=== PATIENT | female | born 1990 | race Caucasian/White ===

== ENCOUNTER 2019-09-26 11:00 | Outpatient (RCR) | payer OTHER, SELFPAY ==
--- NOTE | 2019-09-16 13:54 | OTOPEVAL ---
Occupational Therapy Evaluation and Plan of Treatment 09/16/2019 Thank you for referring Gwendolyn Escalante to [facility]. Patient will benefit from skilled OT 2x/week for 4 weeks. Please review, sign, date and return this plan of care SARA. I agree with and certify that the following plan of care is medically necessary. Referring Physician Date Attending Provider: Karen Mares, PA *OT Outpatient Evaluation Start: 09/16/19 11:54 Freq: Status: Active Protocol: Document 09/16/19 12:36 KJL (Rec: 09/16/19 13:43 KJL [id number]) Therapy Assessment Status Assessment Status Assessment Status Evaluation Outpatient Past Medical History Past Medical History No Past Medical/Surgical History Patient/Family Denies Significant Past Medical/ Surgical History Evaluation Information Problem Diagnosis L wrist pain Onset mid june 2019 Cause over use Additional Evaluation Detail pain to first dorsal compartment of L UE wrist including EPL and ABL tendons on lateral aspect of wrist that began in June of 2019 Subjective Information Pt reports pain on lateral Query Text:As Reported By Patient/ aspect of L wrist started when Family holding 3 month old daughter in june and has progressively become worse. 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
--- NOTE | 2019-09-19 15:43 | PCOTNOTE ---
Patient did not show or call to cancel OT tx today.
--- NOTE | 2019-09-23 11:26 | PCOTNOTE ---
Patient did not show or call to cancel OT treatment on this date 09/23/2019. Called and left message notifying of attendance policy.
--- NOTE | 2019-09-26 11:15 | OTOPEVAL ---
OCCUPATIONAL THERAPY DISCHARGE NOTE 09/26/2019 Gwendolyn has not returned for further treatment since her initial evaluation on 09/16/2019. She has been a no call/no show to 3 appointments, therefore will be discharged from therapy at this time. Goals were not addressed. Thank you for referring Gwendolyn Escalante to [facility]. Please review, sign, date and return this D/C note SARA. I agree with and certify that the following plan of care is medically necessary. Referring Physician Date Referring Provider: Karen Mares, MAVERICK
== END 2019-09-26 12:50 | disposition home or self-care (01) ==
LOC: ANHOT 11:00
PROVIDERS: PCP Physician Assistant; Visit Provider Physician Assistant
DX: M25.532 Pain in left wrist (principal)
CPT/HCPCS: 97165

== ENCOUNTER 2019-11-13 22:42 | Emergency (ER) | payer OTHER, SELFPAY ==
--- NOTE | ~2019-11-13 | XR_ITS ---
EXAMINATION: XR chest 2V DATE: 11/13/2019 23:03 INDICATION: Chest pain TECHNIQUE: PA and lateral views of the chest are obtained. COMPARISON: 08/08/2014 FINDINGS: The lungs are free of acute opacities. There is no pleural effusion or pneumothorax. The ca rdiomediastinal silhouette is normal. The visualized bones and soft tissues are unremarkable. IMPRESSION: 1. No acute cardiopulmonary abnormality. Reviewed, dictated and finalized at location A.
[2019-11-13 22:49] VITALS: BP 122/94; PULSE 89; RESP 18; TEMP 36.9; O2SAT 97
--- NOTE | 2019-11-13 22:50 | ECG_ITS ---
Measurements Intervals [place] Rate: 72 P: 70 UT: 145 QRS: 67 QRSD: 77 T: 60 QT: 362 QTc: 396 Interpretive Statements SINUS RHYTHM WITH SINUS ARRHYTHMIA NORMAL ECG Electronically Signed On 11-14-2019 6:58:08 CDT by Aj Kelly D.O.
--- NOTE | 2019-11-13 22:55 | ED.ARRPALP ---
HPI - Arrhythmia/Palpitations General Chief Complaint: Chest Pain Stated Complaint: Heart is acting weird Time Seen by Provider: 11/13/19 22:50 History of Present Illness HPI narrative: Pt c/o palpitations and feeling anxious x 5 days. Pt states she's been drinking alot of energy drinks lately along with being on Vyvanse. Denies cp, sob, abd pain, or n/v. MD complaint: heart racing Duration: intermittent Related Data Allergies Allergy/AdvReac Type Severity Reaction Status Date / Time No Known Allergies Allergy Unverified 11/11/18 13:03 Review of Systems Review of Systems: All systems reviewed & are unremarkable except as noted in HPI and below Constitutional: Constitutional: Denies body ache(s), Denies chills, Denies excessive sweating, Denies fatigue, Denies fever(s), Denies headache(s), Denies lethargy, Denies malaise, Denies weakness and Denies weight loss Eyes: Eyes: Denies blurry vision, Denies change in vision and Denies loss of vision ENT: Denies dizziness, Denies ear discharge, Denies headache(s), Denies lip swelling, Denies epistaxis, Denies nasal congestion, Denies neck pain, Denies throat swelling and Denies tongue swelling Cardiovascular: Cardiovascular: Denies chest pain, Denies chest pain at rest, Denies chest pain with activity, Denies diaphoresis, Denies edema, Denies irregular heart rhythm, Denies lightheadedness, Denies dyspnea and Denies dyspnea on exertion Respiratory: Respiratory: Denies chest congestion, Denies cough, Denies hemoptysis, Denies dyspnea and Denies dyspnea on exertion Gastrointestinal: Gastrointestinal: Denies abdominal pain, Denies melena, Denies hematochezia, Denies diarrhea, Denies nausea, Denies vomiting and Denies hematemesis Musculoskeletal: Musculoskeletal: Denies abnormal gait, Denies deformity, Denies joint swelling, Denies limited range of motion, Denies neck pain and Denies numbness Neurologic: Denies Abnormal speech present, Denies abnormal gait, Denies confusion, Denies dizziness, Denies headache(s), Denies focal weakness, Denies loss of vision, Denies numbness, Denies Other visual disturbances, Denies Sensory deficit (Neuro) and Denies weakness Psychiatric: Psychiatric: Denies confusion, Denies depression, Denies auditory hallucinations, Denies homicidal ideation and Denies suicidal ideation Endocrine: Endocrine: Denies cold intolerance, Denies excessive sweating, Denies fatigue, Denies heat intolerance and Denies palpitations Hematologic/Lymphatic: Hematologic/Lymphatic: Denies easy bleeding and Denies easy bruising Allergic/Immunologic: Allergic/Immunologic: Denies lip swelling, Denies throat swelling and Denies tongue swelling Exam Const: General: cooperative, healthy appearing, comfortable, no acute distress, well developed, alert and awake; No confusion Orientation/consciousness: oriented to person, oriented to place, oriented to time, patient oriented x3 and No confusion Limitations: no limitations HENMT: Head: normal to inspection, normocephalic and atraumatic Ears: hearing grossly normal bilaterally, TM normal on the right and TM normal on the left General nose exam: Normal external nose present, Normal nares present and No nasal discharge present Face and sinus: normal facial exam Mouth: Yes Normal oral and palatal mucosa present, Yes lip normal, Yes tongue normal and Yes oropharynx normal Throat: posterior oropharynx normal, tonsils normal and uvula midline Eyes: General: appearance normal, both eyes and all related structures Pupils: Equal, round and reactive pupils present EOM: EOMs intact bilaterally Neck: Neck: normal visual inspection, full ROM, no lymphadenopathy and no meningeal signs Chest: Chest palpation & inspection: normal inspection of the chest Resp: Effort & Inspection: normal respiratory effort, able to speak in complete sentences, no respiratory distress and not tachypneic Auscultation: clear to auscultation bilaterally, no crackles, no rales, no rh
[2019-11-13 23:05] LABS: Basophils Absolute Auto 0.1 K/mm3 (0.0-0.1); Basophils Percent Auto 0.8 % (0.2-1.2); Eosinophils Absolute Auto 0.5 K/mm3 (0-0.3); Eosinophils Percent Auto 6.5 % (0-4.4); Hematocrit 41.4 % (37.0-47.0); Immature Granulocyte Absolute 0.02 K/mm3 (0.00-0.031); Immature Granulocyte Percent A 0.2 % (0-0.5); Lymphocytes Absolute Auto 2.66 K/mm3 (0.9-3.2); Mean Corpuscular HGB Conc 33.8 g/dl (32-36); Mean Corpuscular Hemoglobin 32.6 pg (26-34); Mean Corpuscular Volume 96.3 fl (80-100); Mean Platelet Volume 10.2 fl (7.4-10.4); Monocytes Absolute Auto 0.6 K/mm3 (0.1-0.6); Monocytes Percent Auto 7.2 % (2.6-8.5); Neutrophils Absolute Auto 4.4 K/mm3 (1.3-6.7); Neutrophils Percent Auto 53.3 % (45.5-73.1); Platelet Count Result 295 k/mm3 (150-375); Red Cell Distribution Width 12.1 % (11.5-14.5); White Blood Count 8.3 K/mm3 (4.5-10.0)
[2019-11-13 23:14] LABS: Anion Gap 6 mmol/L (8-16); Blood Urea Nitrogen 15 mg/dL (7-17); Calcium 9.5 mg/dL (8.4-10.2); Carbon Dioxide 28 mmol/L (22-30); Chloride 103 mmol/L (98-107); Estimated CRCL calculation 82 ml/min; Estimated Glomerular Filt Rate > 60; Glucose 101 mg/dL (65-105); Sodium 137 mmol/L (137-145)
[2019-11-13 23:26] LABS: Troponin I < 0.012 ng/mL (0.000-0.034)
[2019-11-13 23:28] LABS: D Dimer 0.27 ug/mL (<0.48)
[2019-11-13 23:55] VITALS: BP 130/88; PULSE 69; RESP 18; O2SAT 99
== END 2019-11-13 23:55 | disposition home or self-care (01) ==
PROVIDERS: Emergency Provider Emergency Medicine; PCP Physician Assistant
DX: R00.2 Palpitations (principal)
CPT/HCPCS: 36415; 71046; 80048; 84484; 85025; 85380; 93005; 99284

== ENCOUNTER 2022-06-18 17:01 | Emergency (ER) | payer SELFPAY ==
[2022-06-18 17:38] VITALS: BP 93/76; PULSE 72; RESP 18; TEMP 37.1; O2SAT 100
--- NOTE | 2022-06-18 17:56 | ED.EAR ---
HPI - Ear Problem General Chief complaint: Ear Stated complaint: Ears Irritation Time Seen by Provider: 06/18/22 17:56 Source: patient, RN notes reviewed and old records reviewed Mode of arrival: ambulatory Limitations: no limitations History of Present Illness HPI Narrative: 31-year-old female presents to the [facility] with bilateral ear pain since , 2 days. Denies any fever Had try using ear drops Related Data Home Medications Medication Instructions Recorded Confirmed dextroamphetamine-amphetamine 10 06/18/22 mg tablet Allergies Allergy/AdvReac Type Severity Reaction Status Date / Time No Known Allergies Allergy Verified 06/18/22 17:37 Review of Systems Review of Systems: All systems reviewed & are unremarkable except as noted in HPI and below Constitutional: Constitutional: Reports no additional constitutional complaints Eyes: Eyes: Reports no additional eye complaints ENT: Reports as per HPI and Reports otalgia (Bilateral) Cardiovascular: Cardiovascular: Reports no additional cardiovascular complaints, Denies chest pain and Denies dyspnea Respiratory: Respiratory: Reports no additional respiratory complaints, Denies chest congestion, Denies cough and Denies dyspnea Gastrointestinal: Gastrointestinal: Reports no additional gastrointestinal complaints, Denies abdominal pain, Denies nausea and Denies vomiting Musculoskeletal: Musculoskeletal: Reports no additional musculoskeletal complaints Integumentary/Breasts: Skin/Breast: Reports system reviewed and no additional complaints, except as docu Neurologic: Reports system reviewed and no additional complaints, except as documented Psychiatric: Psychiatric: Reports no additional psychiatric complaints Allergic/Immunologic: Allergic/Immunologic: Reports no additional allergic/immunologic complaints PMFSH Comments At the time of my signature, I reviewed and agree with the nursing past medical, surgical, social, and family history. There is no relevant family history pertinent to the patient complaint. Exam Const: General: cooperative, healthy appearing, comfortable, no acute distress, well developed, alert and well nourished Nutritional Appearance: well nourished Orientation/consciousness: patient oriented x3 Limitations: no limitations HENMT: Head: normal to inspection Ears: hearing grossly normal bilaterally, external ears normal, mastoids normal and TM abnormal bulging bilateral and erythematous bilateral Face/Nose/Sinus: Normal external nose present, Normal nares present, Normal nasal mucous membranes and turbinates present and normal facial exam Face and sinus: normal facial exam Mouth: Yes Normal oral and palatal mucosa present, Yes lip normal and Yes moist mucous membranes Throat: posterior oropharynx normal, uvula midline and postnasal drainage Eyes: General: appearance normal, both eyes and all related structures Alignment and Position: alignment normal Periorbital: periorbital findings normal Conjunctivae: conjunctivae normal Pupils: Equal, round and reactive pupils present EOM: EOMs intact bilaterally Neck: Neck: normal visual inspection, full ROM, no lymphadenopathy and no meningeal signs Chest: Chest palpation & inspection: normal inspection of the chest Resp: Effort & Inspection: normal respiratory effort and able to speak in complete sentences Auscultation: clear to auscultation bilaterally, no crackles, no rales, no rhonchi and no wheezes Cardio: Rate: regular rate Rhythm: regular rhythm Back/Spine/Pelvis: Cervical Spine: cervical ROM normal Thoracic/Lumbar Spine: No thoracic spinal tenderness Skin: General skin exam: normal color and no rashes or lesions noted Lesions: no lesions Rashes: no rashes Wounds: no wounds Neuro: General: patient oriented x3, gait normal, tone normal, moves all extremities and no meningeal signs Cranial nerves: Yes Equal, round and reactive pupils present Cognition (Neuro): normal
== END 2022-06-18 18:08 | disposition home or self-care (01) ==
PROVIDERS: Emergency Provider Nurse Practitioner
DX: H66.93 Otitis media, unspecified, bilateral (principal)
CPT/HCPCS: 99213; G0463

== ENCOUNTER 2024-07-25 19:22 | Emergency (ER) | payer OTHER, SELFPAY ==
[2024-07-25] VITALS (21 sets, daily range): BP systolic 119–133; BP diastolic 69–94; PULSE 76–107; RESP 9–20; TEMP 36.8; O2SAT 89–100
--- NOTE | ~2024-07-25 | CT_ITS ---
CT abdomen pelvis w con Ordering provider: Nabor Kolb MD History: 33 years Female with . epigastric pain radiating to back . Comparison: November 27, 2015 Technique: CT abdomen and pelvis with IV and without oral contrast. Automated exposure control and it erative reconstruction technique were employed. The dose-length product was 210.06 mGy-cm. 100 mL Omn ipaque 350 was given IV. Findings: VISUALIZED LOWER CHEST: Normal. UPPER ABDOMINAL ORGANS: Liver: Normal. Gallbladder: Normal. Spleen: Normal. Stomach/duodenum: Normal. Pancreas: Normal. Adrenals: Normal. Kidneys: Fullness of the right ureter with no definite stones or hydronephrotic changes.. PELVIC ORGANS: The bladder is normal. BOWEL AND MESENTERY: Colon: No evidence of diverticulitis. No evidence of appendicitis. Small Bowel: Normal. No obstruction. Peritoneum/mesentery: No free air or free fluid. No mesenteric lymphadenopathy. RETROPERITONEUM: Normal aorta. No retroperitoneal lymphadenopathy. MUSCULOSKELETAL: Superficial soft tissues: The superficial soft tissues are normal. Bones: Normal spine. IMPRESSION: 1. No evidence of appendicitis, diverticulitis or intestinal obstruction. Reviewed, dictated and finalized at location A.
--- NOTE | ~2024-07-25 | XR_ITS ---
XR chest 2V Ordering provider: Nabor Kolb MD History: 33 years Female with . dizziness . Comparison: November 13, 2019 FINDINGS: MEDIASTINUM: The cardiac silhouette is not enlarged. LUNGS: No infiltrates, effusions or pneumothorax. OTHER: No free air under the diaphragm. IMPRESSION: No acute cardiopulmonary pathology. Reviewed, dictated and finalized at location A.
--- NOTE | 2024-07-25 19:25 | ECG_ITS ---
Test Date: 2024-07-25 19:27:46 Measurements Intervals [place] Rate: 103 P: 74 NM: 145 QRS: 63 QRSD: 69 T: 47 QT: 355 QTc: 467 Interpretive Statements SINUS TACHYCARDIA BASELINE ARTIFACT- II, III, AVL, AVF, V4-V6 BORDERLINE ECG No previous ECG available for comparison Electronically Signed On 07-26-2024 06:11:58 CDT by Aj Kelly D.O.
[2024-07-25 19:39] LABS: Basophils Percent Auto 0.5 % (0.2-1.2); Eosinophils Absolute Auto 0.1 K/mm3 (0-0.3); Eosinophils Percent Auto 1.2 % (0-4.4); Hematocrit 38.4 % (37.0-47.0); Hemoglobin 12.7 g/dL (12.0-15.0); Immature Granulocyte Absolute 0.02 K/mm3 (0.00-0.031); Immature Granulocyte Percent A 0.2 % (0-0.5); Lymphocytes Absolute Auto 2.23 K/mm3 (0.9-3.2); Lymphocytes Percent Auto 26.2 % (18.3-44.2); Mean Corpuscular HGB Conc 33.1 g/dl (32-36); Mean Corpuscular Hemoglobin 31.1 pg (26-34); Mean Corpuscular Volume 93.9 fl (80-100); Mean Platelet Volume 9.9 fl (7.4-10.4); Monocytes Absolute Auto 0.5 K/mm3 (0.1-0.6); Monocytes Percent Auto 5.8 % (2.6-8.5); Neutrophils Absolute Auto 5.6 K/mm3 (1.3-6.7); Neutrophils Percent Auto 66.1 % (45.5-73.1); Platelet Count Result 268 k/mm3 (150-375); Red Blood Count 4.09 M/mm3 (4.2-5.4); White Blood Count 8.5 K/mm3 (4.5-10.0)
--- NOTE | 2024-07-25 19:53 | ED_ITS ---
HPI - Syncope General Chief Complaint: Dizziness Stated Complaint: LIGHTHEADED, DIZZY, HIGH HR History of Present Illness HPI narrative: 33-year-old female with no pertinent past medical history presenting to the emergency depart with 1 week of intermittent epigastric pain radiating towards her back. She states that for last week she has also been having intermittent episodes of feeling lightheaded and dizzy when the pain comes on and knows that she was tachycardic at work from this. She states that she has been trying some Pepcid without any relief of symptoms. Has not noticed any association with food but thinks it could potentially be an ulcer. She states she has had mild episodes of diarrhea and just started her period today as well. Denies any history of gallstones. She states that she was drinking last several days and knows that her pain also worsened during this. Denies any history of pancreatitis, inflammatory bowel disease or any previous endoscopies. Denies any trauma or injury. Has had tubal ligation otherwise unremarkable surgical history. No chest pain shortness a breath. Related Data Home Medications ?Medication ?Instructions ?Recorded ?Confirmed ?Last Taken ?Type dextroamphetamine-amphetamine 10 06/18/22 Unknown History mg tablet Allergies Allergy/AdvReac Type Severity Reaction Status Date / Time No Known Allergies Allergy Verified 07/25/24 19:28 Review of Systems 2 Review of Systems: As reviewed above in HPI Exam 2 Narrative: GENERAL: [Well-appearing, well-nourished, and in no acute distress.] HEAD: [Normocephalic, atraumatic.] EYES: [PERRLA and EOMI.] ENT: Nares clear, no rhinorrhea or epistaxis. Mucous membranes moist. NECK: Supple. CHEST: [Clear to auscultation. No respiratory distress.] HEART: [Regular rate and rhythm]. No murmur heard. [Normal peripheral pulses.] ABDOMEN: [Soft, nondistended], tender to palpation in the epigastrium, negative Enriquez's, [No rigidity or guarding] EXTREMITIES: Normal range of motion. [No edema.] SKIN: Warm, dry, no rash. NEURO: [No focal deficits]. Alert and oriented [x3.] PSYCH: [Normal mood and affect.] Course Vital Signs Vital signs: Vital Signs Pulse Rate 83 07/25/24 19:21 Respiratory Rate 18 07/25/24 19:21 Blood Pressure 132/92 H 07/25/24 19:21 Pulse Oximetry 98 07/25/24 19:21 Oxygen Delivery Room Air 07/25/24 19:21 Temperature 36.8 C 07/25/24 19:25 Pulse Rate 91 07/25/24 23:24 Respiratory Rate 14 07/25/24 23:24 Blood Pressure 121/73 07/25/24 23:24 Pulse Oximetry 100 07/25/24 23:24 Oxygen Delivery Room Air 07/25/24 19:21 MDM - Syncope MDM Narrative Medical decision making narrative: 33-year-old female presenting to the emergency room with epigastric abdominal pain radiating towards her back intermittent in nature for about 1 week. States that was worsened with some alcohol recently but does not have any associations with food intake and pain. States that the pain gets severe and she gets lightheaded to the point that she was passed out several times. Pain is stabbing in quality but does not radiate towards her chest, lowering, pelvis. No history of pancreatitis, gallstones or any surgery besides tubal ligation. She has a mildly tender epigastric region and thinks it could be a potential ulcer. Aside from ibuprofen and alcohol intake she does not have any significant risk factors otherwise. No history of EGDs. She is reassuring set of vitals without any tachycardia, fever, hypoxia significant blood pressure concerns. Differential does include potential peptic ulcer disease, gastric ulcer, duodenal ulcer, H pylori, gastritis, hiatal hernia, pancreatitis, cholecystitis, cholelithiasis. A workup was ordered including CBC, CMP, lipase, urinalysis, test. CT scan of the abdomen pelvis with contrast was ordered. She was given a GI cocktail, Pepcid, fluids and re-evaluated. Patient re-evaluated after GI cocktail felt significantly improved. Laboratory studies showed no leukocytosis or anemia. Normal platelet count. Normal electrolytes, normal renal function, hepatic function, lipase. Urinalysis without any infection. Negative test. CT scan shows no evidence of any appendicitis diverticulitis or any intestinal obstruction. Normal appearing stomach and duodenum per radiology. Given patient's relief with GI cocktail medications in her historical features I believe she might have potential peptic ulcer disease but nothing urgent or emergent. We discussed next steps including GI referral outpatient and starting her on acid suppressing medications and diet modifications. Patient receptive to these plans and safe for discharge home with return precautions. Medical Records Attestation: I reviewed the patient's medical records. Lab Data Attestation: I reviewed the patient's lab results. 07/25/24 19:30 07/25/24 19:30 Labs: Lab Results 07/25/24 07/25/24 07/25/24 Range/Units 19:30 19:55 20:05 WBC 8.5 (4.5-10.0) K/mm3 RBC 4.09 L (4.2-5.4) M/mm3 Hgb 12.7 (12.0-15.0) g/dL Hct 38.4 (37.0-47.0) % MCV 93.9 (80-100) fl MCH 31.1 (26-34) pg MCHC 33.1 (32-36) g/dl RDW 12.0 (11.5-14.5) % Plt Count 268 (150-375) k/mm3 MPV 9.9 (7.4-10.4) fl Immature Gran % (Auto) 0.2 (0-0.5) % Neut % (Auto) 66.1 (45.5-73.1) % Lymph % (Auto) 26.2 (18.3-44.2) % Centre % (Auto) 5.8 (2.6-8.5) % Eos % (Auto) 1.2 (0-4.4) % Baso % (Auto) 0.5 (0.2-1.2) % Lymph # (Auto) 2.23 (0.9-3.2) K/mm3 Centre # (Auto) 0.5 (0.1-0.6) K/mm3 Eos # (Auto) 0.1 (0-0.3) K/mm3 Baso # (Auto) 0.0 (0.0-0.1) K/mm3 Abs Immat Gran (auto) 0.02 (0.00-0.031) K/mm3 Absolute Neuts (auto) 5.6 (1.3-6.7) K/mm3 Absolute Nucleated RBC 0.000 (0.0-0.012) K/mm3 Nucleated RBC % 0.0 (0.0-0.2) % Sodium 136 L (137-145) mmol/L Potassium 3.5 (3.4-5.0) mmol/L Chloride 102 (98-107) mmol/L Carbon Dioxide 24 (22-30) mmol/L Anion Gap 10 (4-12) mmol/L BUN 11 (7-17) mg/dL Creatinine 0.73 (0.7-1.0) mg/dL Estim Creat Clear Calc 80 ml/min Estimated GFR > 60 (59 - ) Glucose 92 (65-110) mg/dL Calcium 9.4 (8.4-10.2) mg/dL Total Bilirubin 0.6 (0.2-1.3) mg/dL AST 35 (14-36) U/L ALT 18 (6-35) U/L Alkaline Phosphatase 55 (38-126) U/L Total Protein 7.7 (6.3-8.2) g/dL Albumin 4.7 (3.5-5.1) g/dL Lipase 121 (23-300) U/L Urine Color Yellow (Yellow) Urine Appearance Clear (Clear) Urine pH 6.5 (5.0-9.0) Ur Specific [place] 1.015 (1.001-1.035) Urine Protein Negative (Negative) mg/dL Urine Glucose (UA) Negative (Negative) mg/dL Urine Ketones Negative (Negative) mg/dL Ur Blood (Man) 2+ H (Negative) Urine Nitrate Negative (Negative) Urine Bilirubin Negative (Negative) Urine Urobilinogen 0.2 (<2.0) mg/dL Leukocyte Esterase Rfl Negative (Negative) BERTIN/UL Urine RBC 0-2 (0-2) /hpf Urine WBC 0-5 (0-3) /hpf Ur Squamous Epith Cells None seen (Few) /hpf Urine Bacteria Rare /hpf Urine Casts 0-2 POC Urine HCG, Qual Negative (Negative) Imaging Data Attestation: I personally reviewed and interpreted this imaging study as follows: My impression: Impressions Chest X-Ray 07/25/24 21:25 IMPRESSION: No acute cardiopulmonary pathology. Abdomen/Pelvis CT 07/25/24 23:02 IMPRESSION: 1. No evidence of appendicitis, diverticulitis or intestinal obstruction. Discharge Plan Discharge Clinical Impression: Abdominal pain, epigastric, Concern about peptic ulcer disease without diagnosis Patient Disposition: Home Condition: Stable Instructions: Antibiotic Form, Peptic Ulcer (ED), Diet for Stomach Ulcers and Gastritis (ED), Abdominal Pain (ED) Additional Instructions: Your symptomatology is very consistent with potential peptic ulcer disease but you will need a GI doctor to evaluate you outpatient with endoscopy for definitive diagnosis. Will start home medications to help control these symptoms. Return with any worsening, persistent, new concerns. Follow-up with the provided specialist and your primary care provider. Patient Language: Portuguese Prescriptions: New pantoprazole [Protonix] 20 mg tablet,delayed release (DR/EC) 20 mg PO HS 28 Days Qty: 28 0RF alum-mag hydroxide-simeth [Maalox Advanced] 200-200-20 mg/5 mL suspension 15 ml PO QID PRN (Reason: dyspepsia) Qty: 3000 0RF Rx Instructions: administer between meals and at bedtime No Action dextroamphetamine-amphetamine 10 mg tablet amoxicillin 875 mg tablet 875 mg PO Q12H Qty: 20 0RF Follow-up/Referrals: PHYSICIAN,SPECIAL EDUCATION SUPERINTENDENT [Primary Care Provider] - Jarret Torres MD [Physician] - 1 Week (Suspect peptic ulcer disease, refer for endoscopy) Jair Short MD [Physician] - 1 Week (Suspect peptic ulcer disease, refer for endoscopy) Time of Disposition: 23:39
[2024-07-25 19:54] LABS: Alanine Aminotransferase 18 U/L (6-35); Albumin Level 4.7 g/dL (3.5-5.1); Alkaline Phosphatase 55 U/L (38-126); Anion Gap 10 mmol/L (4-12); Aspartate Amino Transferase 35 U/L (14-36); Bilirubin,Total 0.6 mg/dL (0.2-1.3); Blood Urea Nitrogen 11 mg/dL (7-17); Calcium 9.4 mg/dL (8.4-10.2); Carbon Dioxide 24 mmol/L (22-30); Chloride 102 mmol/L (98-107); Estimated CRCL calculation 80 ml/min; Estimated Glomerular Filt Rate > 60; Glucose 92 mg/dL (65-110); Potassium 3.5 mmol/L (3.4-5.0); Sodium 136 mmol/L (137-145); Total Protein 7.7 g/dL (6.3-8.2)
[2024-07-25 20:07] LABS: BEDSIDEPREGUCG Negative (Negative)
[2024-07-25 20:08] LABS: Add Urine Microscopic? YES; Appearance Urine Clear (Clear); Bacteria Urine Rare /hpf; Bilirubin Urine Negative (Negative); Blood Urine 2+ (Negative); Color Urine Yellow (Yellow); Glucose Urine UA Negative (Negative); Ketones Urine Negative (Negative); Leukocyte Esterase Ur Negative LEU/UL (Negative); Nitrate Urine Negative (Negative); Non Pathogenic Casts 0-2; Protein Urine Negative (Negative); RBC Urine 0-2 /hpf (0-2); Specific Grav Ur 1.015 (1.001-1.035); Squamous Epithelial Cell Urine None Seen /hpf (Few); Urobilinogen Urine 0.2 mg/dL (<2.0); WBC Urine 0-5 /hpf (0-3); pH Urine 6.5 (5.0-9.0)
[2024-07-25] MEDS: SODIUM CHLORIDE 0.9% IV 1,000 ML 999 ML IV CONT (20:14)
[2024-07-25] MEDS: FAMOTIDINE 20 MG/2 ML VIAL IV PUSH (20:15)
[2024-07-25] MEDS: BELLADONNA ALK/PHENOB ELIX 10 ML, MAG HYDROX/ALUMINUM HYD/SIMETH 30 ML, LIDOCAINE 2% VI... PO (20:15)
--- OUTSIDE RECORDS SUMMARY | 2024-07-25 20:25 | XMS_ITS | Referral Summary ---
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 Role Phone Karen Mares Primary Care Provider + Allergies No known active allergies Medications dextroamphetami ne-amphetamine (ADDERALL) 20 mg tablet Take 1 tablet (20 mg total) by mouth 2 (two) times a day as needed Active hydrOXYzine (ATARAX) 50 mg tablet Take 1 tablet (50 mg total) by mouth nightly as needed for anxiety Active lamoTRIgine (LaMICtal) 25 mg tablet Take 3 tablets (75 mg total) by mouth nightly Active butalbital-acet aminophen-caffe ine (ESGIC) 50-325-40 mg per tablet Take 1 tablet by mouth every 4 (four) hours as needed for headaches 2 Active albuterol HFA (PROVENTIL HFA,VENTOLIN HFA,PROAIR HFA) 90 mcg/actuation inhaler Inhale 2 puffs every 4 (four) hours as needed 3 Active atomoxetine (Strattera) 40 mg capsule daily Active folic acid (FOLVITE) 800 mcg tablet daily Active metroNIDAZOLE (FLAGYL) 500 mg tablet Take 1 tablet (500 mg total) by mouth 2 (two) times a day 3 Active mirtazapine (Remeron) 15 mg tablet daily Active thiamine (VITAMIN B1) 100 mg tablet daily Active tiZANidine (ZANAFLEX) 4 mg tablet every 6 hours Active Active Problems Problem Noted Date Diagnosed Date ADHD (attention deficit hype ractivity disorder), inattentive type 12/07/2022 [place] (generalized anxiety disorder) 12/07/2022 Mood disorder 12/07/2022 Vitamin D deficiency 12/07/2022 Acute left-sided weakness 12/22/2021 Anxiety 09/17/2020 Major depressive disorder with single episode Pelvic pain in nithin ent at greater than 20 weeks gestation 09/17/2020 Previous , delivered, current hospitaliz ation 09/17/2020 Single delivery by section 09/17/2020 Suicidal behavior 09/17/2020 Dysthymia 08/16/2020 Assessment & Plan (08/16/2020 2:25 PM CDT): Patient has a long hx of chronic low mood since age 13. She reports chronic depressed mood but no episodic worsening and she denies episodes consistent with MDE or lance. She had one SA by hanging in the past, last around 4-5 years ago. She had SIB as a kid but not since adolescence. She does not seem to have sx consistent with a pervasive personality disorder. She denies current symptosm consistent with a depressive episode. The most appropriate diagnosis at this time is dysthymia. Plan as below Alcohol intoxication without use disorder with c omplication 08/16/2020 Assessment & Plan (08/16/2020 2:07 PM CDT): Ms. Escalante is a 30 yo with a hx of depression and ADHD, admitted for SI in the context of alcohol intoxication and social stressors. Patient drinks alcohol socially but does not have symptoms consistent with alcohol use disorder. On the day of admission, while intoxicated (BAL ), and while having a fight with her BF, she expressed SI and was brought to the ED and admitted to [facility]. Today, she denies SI and reports clear future plans (take care of her kids, kid's birthday today, exam tomorrow..). she does report chronic depressed mood with no other current depressive symptoms. She was also at baseline, prior to yesterday, as she is now. She does not have psychotic sx. Her presentation is thought to be related to alcohol intoxication. Risk assessment: at this time, patient is not at an imminent risk of harm to herself or others as she does not have SI/HI/AVH/delusions/thought disorder/disorganized behaviors. She has kids at home, clear and organized future plans, plans for self preservation and seeking psychotherapy, social support and access to care. She is stale and appropriate for OP management. PLAN: - patient will be discharged, per her request. Patient and her mother both feel comfortable with that plan - patient is not interested in medications and none are indicated at this time - provided psycho-education about the effects of alcohol on her wellbeing - I discussed psychotherapy with patient and she is interested. SW provided referrals. Severe episode of recurrent major depressive disorder, without psychotic features 03/31/2017 Social History Tobacco Use Types Packs/Day Years Used Date Smoking Tobacco: Never Smokeless Tobacco: Never Alcohol Use Standard Drinks/Week Comments Yes 2 (1 standard drink = 0.6 oz pur e alcohol) Social Connection and Isolat ion Panel [NHANES] Answer Date Recorded In a typical week, how many times do you talk on the phone with family, friends, or neighbors? More than three times a week 12/23/2021 How often do you get togethe r with friends or relatives? More than three times a week 12/23/2021 How often do you attend chur ch or mandaen services? Never 12/23/2021 Do you belong to any clubs o r organizations such as voodoo groups, unions, fraternal or athletic groups, or school groups? No 12/23/2021 How often do you attend meet ings of the clubs or organizations you belong to? Never 12/23/2021 Are you , , di vorced, , never , or living with a partner? Never 12/23/2021 Overall Financial Resource Strain (CARDIA) Answe r Date Recorded How hard is it for you to pa y for the very basics like food, housing, medical care, and heating? Not very hard 12/23/2021 [facility] - Occupational Stress Questionnaire Answer Date Recorded Do you feel stress - tense, restless, nervous, or anxious, or unable to sleep at night because your mind is troubled all the time - these days? Patient declined 08/16/2020 Hunger Vital Sign Answer Date Recorded Within the past 12 months, y ou worried that your food would run out before you got the money to buy more. Never true 08/17/19 21 Within the past 12 months, t he food you bought just didn't last and you didn't have money to get more. Never true 08/16/2020 PRAPARE - Transportation Answer Date Re corded In the past 12 months, has l ack of transportation kept you from medical appointments or from getting medications? No 04/2021 In the past 12 months, has l ack of transportation kept you from meetings, work, or from getting things needed for daily living? No 12/23/2021 Housing Stability Vital Sign Answer Jeremias e Recorded In the last 12 months, was t here a time when you were not able to pay the mortgage or rent on time? Patient refused 08/17/19 21 Number of Places Lived in the Last Year Not on f ile 08/16/2020 In the last 12 months, was t here a time when you did not have a steady place to sleep or slept in a jail (including now)? Patient refused 08/16/2020 Personal Safety Answer Date Recorded Getting School Help Needed Not on file 12/09 Education Answer Date Recorded What is the highest level of school you have completed or the highest degree you have received? 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 Advance Directives For more information, please contact: [phone] * Full Code (Latest Code Status on File) Date Activated Date Inactivated Comments 12/23/2021 12:08 AM 12/24/2021 4:04 PM * Full Code Date Activated Date Inactivated Comments 08/15/2020 4:25 PM 08/16/2020 9:37 PM Care Teams Concrete Plant Laborer Relationship Specialty Start Date End Date Karen Mares PA PCP - General Physician Legal Coordinator 11/22/19
--- OUTSIDE RECORDS SUMMARY | 2024-07-25 20:25 | XMS_ITS | Clinical Summary ---
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 Today, she denies SI and reports clear [...] major depressive disorder, without psychotic features 03/31/2017 Surgical History Surgery Date Site/Laterality Comments SECTION Medical History Medical History Date Comments Depression Anxiety Heart palpitations Family History Medical History Relation Name Comments Heart disease Maternal Grandmother Hypertension Maternal Grandmother Relation Name Status Comments Maternal Grandmother Social History Tobacco Use Types Packs/Day Years [...] often do you attend chur ch or evangelical services? Never 12/23/2021 Do you belong to any clubs o r organizations such as faith groups, unions, fraternal or athletic groups, or [...] care, and heating? Not very hard 12/23/2021 [facility] - Occupational Stress [...] place to sleep or slept in a longterm (including now)? 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 Gender Identity Not on file Sexual Orientation Not on file Obstetrics History Last Filed Vital Signs Vital Sign Reading [...] 12/07/2022 2:04 PM CDT Plan of Treatment Health Maintenance Due Date Last Done Comments Cervical Cancer Screening 1992 Depression Screening 1992 Hepatitis C Screening 1992 Varicella Vaccines (1 of 2 - 13+ 2-dose series) 2005 HPV Vaccines (2 - 3-dose series) 11/23/2007 10/26/19 08 Hepatitis B Screening 2010 Regular Well Visit/Exam 18-64 2010 Influenza Vaccine (Season Ended) 2024 12/09/19 07 DTaP/Tdap/Td Vaccine (2 - Td or Tdap) 03/06/2029 03/06/2019 Pneumococcal vaccine <65 Aged Out No longer eligible based on patient's age to complete this topic Insurance [facility]AN [employer] [facility] Advance Directives For more information, please contact: [phone] * Full Code (Latest Code Status on File) Date Activated Date Inactivated Comments 12/23/2021 12:08 AM 12/24/2021 4:04 PM * Full Code Date Activated Date Inactivated Comments 08/15/2020 4:25 PM 08/16/2020 9:[address] Mixer Operator Relationship Specialty Start Date End Date Karen Mares PA PCP - General Physician Supervisor Fiber Locking 11/22/19
--- OUTSIDE RECORDS SUMMARY | 2024-07-25 20:25 | XMS_ITS | Patient Health Record ---
Author Organization [facility] Address [address] [place] [address] Care Team Providers Care Extension Associate Name Role Phone Rodrigo Shalinijonathan Primary Care Provider JigneshAshley robert Unavailable [phone] Reason For Referral No Information Medications Medication SIG (Take, Route, Frequency, Duration) Notes Start Date End Date Status LaMICtal 200 MG 1 tablet Orally once daily (d/c if rash occurs) for 30 Active Venlafaxine HCl ER 37.5 MG 1 tablet with food Orally Once a day for 30 Active Folic Acid 800 MCG 1 tablet Orally Once a day Not-Taking Thiamine HCl 100 MG 1 tablet Orally Once a day Not-Taking Strattera 40 MG 1 capsule in the morning Orally Once a day for 30 Active Vistaril 25 MG 1 capsule as needed Orally three times daily for 30 days 03/17/2017 Active Multivitamin Adult - Orally Not-Taking Venlafaxine HCl ER 37.5 MG 1 tablet with food Orally Once a day for 30 days Active Remeron 15 MG 1 tablet at bedtime Orally Once a day for 30 day(s) Not-Taking tiZANidine HCl 4 MG 1 tablet as needed Orally every 6 hours Not-Taking Social History Tobacco Use: Social History Observation Description Date Details (start date - stop date) Former Smoker NA - NA Dont use, Tobacco Use/Smoking Question Answer Notes Are you a former smoker How long has it been since y ou last smoked? < 1 month Additional Findings: Tobacco User Light cigarett e smoker ((1-9 cigs/day) Additional Findings: Tobacco Non-User Ex-cigaret te smoker Section Notes: Discussed smoking cessation. Discussed smoking cessation. Discussed smoking cessation. Discussed smoking cessation. Discussed smoking cessation. Discussed smoking cessation. Discussed smoking cessation Disscused smoking cessation. Discussed smoking cessation. Discussed smoking cessation. Discussed smoking cessation. Discussed smoking cessation. Problems Problem Type SNOMED Code ICD Code Onset Dates Problem Status W/U Status Risk Notes Problem Mood disorder (50270366) Mood disorder (F39) Active confirmed Problem 33803821 Vitamin D deficiency (E55.9) Active confirmed Problem 61107457 ADHD (attention deficit hyperactivity disorder), inattentive type (F90.0) Active confirmed Problem 00518794 [place] (generalized anxiety disorder) (F41.1) Active confirmed Problem History of disorder of vision (709193998173 102) Vision problem (H54.7) Active confirmed Plan Of Treatment Pending Test Test Name Order Date Rapid Strep 06/12/2015 Insurance Providers Payer Name Payer Address Payer Phone Subscriber Number Group Number Insured Name Patient Relationship to Insured Coverage Start Date Coverage End Date [employer] Att Claims Department [address] [id number] Gwendolyn Escalante Self - patient is the insured Medical (General) History Medical History History ICD Code Urinary Tract Infection Pre-eclampsia Surgical History Surgery Date(Month/Year) 08/2009 07/2012 Hospitalization History Reason Date(Month/Year) hospitalized for depression/anxiety 2010 , 2011, 2012
[2024-07-25 20:35] LABS: Lipase 121 U/L (23-300)
== END 2024-07-25 23:50 | disposition home or self-care (01) ==
PROVIDERS: Emergency Provider Student in an Organized Health Care Education/Training Program
DX: R10.13 Epigastric pain (principal); R00.0 Tachycardia, unspecified
CPT/HCPCS: 36415; 71046; 74177; 80053; 81001; 81025; 83690; 85025; 93005; 96361; 96374; 99284; A9270; J7030; Q9967